=== PATIENT | female | born 1965 | race Caucasian/White ===

== ENCOUNTER 2019-04-20 11:59 | Day surgery (SDC) | payer BC ==
[2019-04-20] MEDS ORDERED: LIDOCAINE 2% MDV (20MG/ML) 20ML VIAL IV ONE ×2 (12:00)
[2019-04-20] MEDS ORDERED: PROPOFOL 10 MG/ML VIAL IV ONE ×2 (12:00)
--- NOTE | 2019-04-21 10:10 | Operative Note ---
OPERATION: COLONOSCOPY with cold snare polypectomy. PREOPERATIVE DIAGNOSIS: Colon cancer screening, initial exam. POSTOPERATIVE DIAGNOSIS: Sigmoid colon polyp, status post cold snare removal. ESTIMATED BLOOD LOSS: Minimum. SPECIMENS: Sigmoid colon. COMPLICATIONS: None apparent. PREPARATION QUALITY: Excellent. PROCEDURE: After informed consent was obtained from the patient, she was placed in the left lateral decubitus position in the endoscopy suite, sedated and monitored by the department of anesthesia. Digital rectal exam was unremarkable. A well-lubricated [id number] colonoscope was inserted into the rectum and advanced to the cecum. Abdominal pressure was required to intubate the cecal cap due to tortuosity and colonic looping. Despite multiple attempts to reduce any sigmoid looping, abdominal pressure was required for a brief amount of time. The cecum, cecal cap, ileocecal valve, appendiceal orifice, ascending colon, transverse colon, and descending colon were unremarkable. The sigmoid colon revealed a 5 mm sessile polyp removed with a cold snare and retrieved. The rectum was unremarkable in forward and J-turn views. The endoscope was straightened, the rectal ampulla deflated, and the endoscope was removed. RECOMMENDATIONS: The patient will require repeat exam pending tissue histology and I suspect this will be 5 years. Further recommendation based on tissue histology. As always, thank you for allowing me to participate in the healthcare of your patients. YARA
== END 2019-04-20 14:07 | disposition home or self-care (01) ==
LOC: HOP 11:59
PROVIDERS: ATTEND Internal Medicine Gastroenterology
DX: Z12.11 Encounter for screening for malignant neoplasm of colon (principal); D12.5 Benign neoplasm of sigmoid colon
CPT/HCPCS: 81025